=== PATIENT | female | born 1970 | race Caucasian/White ===

== ENCOUNTER 2021-09-04 22:15 | Emergency (ER) | payer OTHER, SELFPAY ==
[2021-09-04 22:25] VITALS: BP 157/87; PULSE 88; RESP 16; O2SAT 100; BMI 28.8
--- NOTE | 2021-09-04 22:25 | PC.NURSE ---
at [facility] for primary eval.
--- NOTE | 2021-09-04 22:26 | ED_ITS ---
HPI - General Adult General Chief complaint: ETOH/Substance Use Stated complaint: overdose Time Seen by Provider: 09/04/21 22:23 Source: patient Limitations: no limitations History of Present Illness HPI narrative: This is a 51 years old female brought here by ambulance because after taking CBD eatible became anxious,she is now feels better and she is requesting discharge home Onset (ago): hour(s) (2) Radiation: non-radiation Severity: mild Relieving factors: none Exacerbating factors: none Related Data Allergies Allergy/AdvReac Type Severity Reaction Status Date / Time bee pollen [bee stings] Allergy Swelling Verified 09/04/21 22:29 Review of Systems Review of Systems: Yes all other systems are reviewed and are negative ENT: Reports system reviewed and no additional complaints, except as documented Cardiovascular: Cardiovascular: Denies chest pain, Denies chest pain at rest, Denies chest pain with activity, Denies syncope and Denies dyspnea Respiratory: Respiratory: Denies dyspnea Neurologic: Denies syncope Allergic/Immunologic: Allergic/Immunologic: Reports no additional allergic/immunologic complaints PMFSH Past Medical History Attestation statement: The following information was validated with the patient. Medical History Depression Social History Social History Advance Directives: No Advance Directives Information Provided: No Patient : No Physical Exam Vital Signs: Vital Signs: Last Vital Signs Pulse 78 09/04/21 22:39 Resp 18 09/04/21 22:39 BP 183/92 H 09/04/21 22:39 Pulse Ox 99 09/04/21 22:39 Body Mass Index 28.8 Const: General: cooperative and healthy appearing Nutritional Appearance: well nourished Orientation/consciousness: patient oriented x3 HENMT: Head: Yes normal to inspection Face and sinus: Yes normal facial exam Mouth: Normal oral and palatal mucosa present Neck: Neck: Yes normal visual inspection, Yes full ROM and Yes no lymphadenopathy Chest: Chest palpation & inspection: normal inspection of the chest Resp: Effort & Inspection: normal respiratory effort Auscultation: clear to auscultation bilaterally Cardio: Jugular venous distension: no JVD Rate: regular rate Rhythm: regular rhythm GI: Inspection: Yes normal to inspection Palpation (GI): Soft to palpation and nontender Skin: General skin exam: no rashes or lesions noted, elasticity normal and tu rgor normal Rashes: no rashes Neuro: General: patient oriented x3 Psych: Appearance: grossly normal and well kempt Mental Status: mental status grossly normal Speech and movement: Clear speech present Attitude: cooperative Thought content: Normal thought content present Insight: Good insight present (Psych) Course Course Course Narrative: At this time the patient is completely asymptomatic, she is requesting discharge, she is not SI, she does not want detox we will discharge her home Discharge Plan Discharge Clinical Impression: Anxiety, Cannabis abuse Patient Disposition: Home, Self-Care Instructions: Anxiety (ED) Additional Instructions: Follow-up with your primary care physician on Tuesday return if you worse,any concern Interventions: ED Discharge Assessment Last Done: 09/04/21 22:52 Discharge Date/Time: 09/04/21 22:53
[2021-09-04 22:39] VITALS: BP 183/92; PULSE 78; RESP 18; O2SAT 99
== END 2021-09-04 22:53 | disposition home or self-care (01) ==
LOC: HO.ED 22:46
PROVIDERS: Emergency Provider Emergency Medicine
DX: F12.180 Cannabis abuse with cannabis-induced anxiety disorder (principal)
CPT/HCPCS: 99283

== ENCOUNTER 2023-01-10 09:42 | Emergency (ER) | payer OTHER, SELFPAY ==
[2023-01-10 09:44] VITALS: BP 153/79; PULSE 75; RESP 18; TEMP 36.7; O2SAT 97; BMI 29.5
--- NOTE | 2023-01-10 10:37 | ED_ITS ---
HPI - General Adult General Chief complaint: General Medical Stated complaint: high bp Time Seen by Provider: 01/10/23 10:36 Source: patient Mode of arrival: ambulatory Limitations: no limitations History of Present Illness HPI narrative: Patient is a 52 year old assigned female at with a history of HTN on 25mg of Losartan presenting to the emergency department today after 2 nose bleeds and being informed her blood pressure was high at work. Patient states that she is having intermittent nose bleeds and went to the nurses office at her job and they informed her that her blood pressure was high with the systolic number in the 170s. Patient states that she has high blood pressure and takes Losartan, 25mg. Patient denies any dizziness, lightheadedness, abdominal pain, nausea, vomiting, fever, chills, blurry vision, double vision, loss of vision, chest pain, difficulty breathing, shortness of breath, back pain, night sweats, pain with urination, increased urinary frequency, increased urinary urgency, blood in her urine or stool, syncope or a near syncopal episode, recent trauma or falls, bowel incontinence, bladder incontinence, bowel retention, bladder retention, or any other complaints at this time. Severity: mild Severity scale (1-10): 2 Relieving factors: none Exacerbating factors: none Associated symptoms: denies other symptoms Treatments prior to arrival: none Related Data Allergies Allergy/AdvReac Type Severity Reaction Status Date / Time bee pollen [bee stings] Allergy Swelling Verified 09/04/21 22:29 Review of Systems Constitutional: Constitutional: Reports no additional constitutional complaints, Denies chills, Denies fever(s) and Denies night sweats Eyes: Eyes: Reports no additional eye complaints, Denies blurry vision, Denies change in vision, Denies diplopia, Denies eye discharge, Denies loss of vision and Denies eye pain ENT: Denies dizziness Cardiovascular: Cardiovascular: Reports no additional cardiovascular complaints, Denies chest pain, Denies lightheadedness, Denies Loss of Consciousness and Denies dyspnea Respiratory: Respiratory: Reports no additional respiratory complaints and Denies dyspnea Gastrointestinal: Gastrointestinal: Reports no additional gastrointestinal complaints, Denies abdominal pain, Denies melena, Denies hematochezia, Denies change in bowel habits and Denies change in stool character Genitourinary: Genitourinary: Denies hematuria, Denies urinary frequency, Denies dysuria, Denies urinary incontinence, Denies urinary hesitancy and Denies urinary urgency Musculoskeletal: Musculoskeletal: Reports no additional musculoskeletal complaints, Denies numbness and Denies tingling Neurologic: Denies dizziness, Denies loss of vision, Denies numbness and Denies tingling Psychiatric: Psychiatric: Reports no additional psychiatric complaints Endocrine: Endocrine: Reports no additional endocrine complaints Hematologic/Lymphatic: Hematologic/Lymphatic: Reports no additional hematologic/lymphatic complaints Allergic/Immunologic: Allergic/Immunologic: Reports no additional allergic/immunologic complaints [facility] Past Medical History Attestation statement: The following information was validated with the patient. Source: old records reviewed and nursing notes reviewed Medical History Depression Social History Social History Advance Directives: No Advance Directives Information Provided: No Physical Exam ED Vital Signs: Vital Signs - 24 hr 01/10/23 09:44 01/10/23 12:08 Temperature 98.1 F Pulse Rate 75 65 Respiratory Rate 18 18 Blood Pressure 153/79 H 154/84 H Pulse Oximetry 97 99 Oxygen Delivery Method Room Air Room Air BMI result Body Mass Index 29.5 Const General: cooperative, no acute distress, alert and awake Nutritional Appearance: well nourished Orientation/consciousness: patient oriented x3 Limitations: no limitations HENMT Head: Yes normal to inspection and Yes atraumatic Ears: hearing grossly normal bilaterally and external ears normal General nose exam: Normal external nose present, no nasal discharge noted and no epistaxis Face and sinus: Yes normal facial exam, No abrasion and No laceration Mouth: Normal oral and palatal mucosa present, no drooling and no muffled voice Eyes General: appearance normal, both eyes and all related structures Periorbital: periorbital findings normal Eyelids: Yes eyelids normal Conjunctivae: conjunctivae normal Pupils: Equal, round and reactive pupils present EOM: EOMs intact bilaterally Neck Neck: Yes normal visual inspection, Yes full ROM and Yes no lymphadenopathy Chest Chest palpation & inspection: normal inspection of the chest Resp Effort & Inspection: normal respiratory effort and able to speak in complete sentences Auscultation: clear to auscultation bilaterally Cardio Rate: regular rate Rhythm: regular rhythm GI Inspection: Yes normal to inspection Palpation (GI): Soft to palpation, not firm, nontender and no guarding Neuro General: patient oriented x3 and moves all extremities Cranial nerves: Yes Equal, round and reactive pupils present Cognition (Neuro): normal cognition Motor exam (neuro): 5/5 motor strength present throughout Sensory Exam: Normal double simultaneous stimulation for sensation Coordination: [id number] test normal Extrem General: Yes normal to inspection, Yes full ROM and Yes capillary refill normal Psych Appearance: grossly normal Mental Status: mental status grossly normal Affect: normal affect Attitude: cooperative Thought process: Normal thought process present Thought content: Normal thought content present Insight: Good insight present (Psych) Medical Decision Making Medical Decision Making MDM Narrative: Patient is a 52 year old assigned female at with a history of HTN presenting to the emergency department today after a nose bleed and concerns of high blood pressure. Patient's physical exam was unremarkable. Patient's nose bleed resolved and there was no evidence of current bleeding in either nostril. Patient's blood work was unremarkable. Patient's EKG was unremarkable. I explained my physical exam findings as well as all test results to the patient. I answered all questions asked by the patient. I stressed the importance of the patient taking her other medication as prescribed and increasing her losartan by 1/2 tab while keeping a blood pressure diary to review with her PCP. I stressed the importance of the patient following up with her primary care provider. I stressed the importance of the patient returning to the emergency department immediately if her symptoms were to worsen or if she were to develop any dizziness, shortness of breath, difficulty breathing, chest pain, blurry vision, loss of vision, nausea, vomiting, abdominal pain, fever, chills, back pain, or any other complaints. Patient verbalized agreement and understanding with this treatment plan and discharge. Differential Diagnosis Differential Diagnoses: The differential diagnosis associated with the presentation includes HTN, resolved epistaxis Lab Data [facility] Lab Attestation statement: I reviewed the patient's lab results. 01/10/23 11:47 01/10/23 11:22 Labs: Lab Results 01/10/23 01/10/23 Range/Units 11:22 11:47 WBC 9.0 (4.8-10.8) X10*3/uL RBC 5.07 (4.20-5.50) X10*6/uL Hgb 13.0 (12.0-16.0) g/dl Hct 39.5 (37.0-47.0) % MCV 77.9 L (80.0-98.0) fL MCH 25.6 L (27.0-33.0) pg MCHC 32.9 (31.0-35.0) g/dl RDW 13.0 (11.0-16.0) % Plt Count 278 (160-400) X10*3/uL MPV 10.4 (9.4-12.3) fL Immature Gran % (Auto) 0.3 (0.0-0.4) % Neut % (Auto) 61.4 (45-73) % Lymph % (Auto) 31.3 (20-40) % Vance % (Auto) 5.1 (2-11) % Eos % (Auto) 1.3 (0-4) % Baso % (Auto) 0.6 (0-2) % Lymph # (Auto) 2.8 (1.2-4.9) X10*3/uL Vance # (Auto) 0.5 (0.1-1.2) X10*3/uL Eos # (Auto) 0.1 (0.0-0.4) X10*3/uL Baso # (Auto) 0.1 (0.0-0.2) X10*3/uL Abs Immat Gran (auto) 0.03 (0.00-0.03) X10*3/uL Absolute Neuts (auto) 5.5 (2.0-8.3) x10*3/uL Absolute Nucleated RBC 0.000 (0.0-0.012) X10*3/uL Nucleated RBC % (auto) 0.0 (0.0-0.2) /100WBC Sodium 139 (135-145) mmol/L Potassium 4.2 (3.3-5.1) mmol/L Chloride 111 H (96-108) mmol/L Carbon Dioxide 21 L (22-29) mmol/L Anion Gap 11 L (12-20) BUN 14 (9-16) mg/dL Creatinine 0.70 (0.5-1.4) mg/dL Estim Creat Clear Calc 97.2 Estimated GFR > 60 Random Glucose 95 (60-115) mg/dL Calcium 9.2 (8.4-10.2) mg/dL Magnesium 2.1 (1.6-2.6) mg/dL Total Bilirubin 0.3 (0.0-1.0) mg/dL AST 19 (5-31) U/L ALT 28 (0-31) U/L Alkaline Phosphatase 97 (39-117) U/L Total Protein 6.8 (6.5-8.0) g/dL Albumin 4.2 (3.5-5.0) g/dL Discharge Plan Discharge Clinical Impression: Hypertension Patient Disposition: Home, Self-Care Instructions: Hypertension (ED) Additional Instructions: Increase your daily blood pressure medication dose by 1/2 tab. If you begin to have any dizziness, unsteadiness, or other adverse reactions - drop back down to your original dose. Begin a blood pressure diary. Follow up with your primary care provider. Return to the emergency department immediately if your symptoms worsen or if you develop any dizziness, shortness of breath, difficulty breathing, chest pain, blurry vision, loss of vision, nausea, vomiting, abdominal pain, fever, chills, back pain, or any other complaints. Referrals: [facility] Family Medicine [Provider Group] (Call to establish and follow up with a primary care provider. If you already have a primary care provider, please follow up with them.) [facility] [Provider Group] (Call to establish and follow up with a primary care provider. If you already have a primary care provider, please follow up with them.) [facility] Primary Care,[facility] [Provider Group] (Call to establish and follow up with a primary care provider. If you already have a primary care provider, please follow up with them.) Stand Alone Forms: Work/School Release Interventions: ED Discharge Assessment Last Done: 01/10/23 12:08 Discharge Date/Time: 01/10/23 12:09 Print Language: Uzbek
--- NOTE | 2023-01-10 10:41 | ECG_ITS ---
Test Reason : HTN,WEAKNESS Blood Pressure : / mmHG Vent. Rate : 063 BPM Atrial Rate : 063 BPM P-R Int : 152 ms QRS Dur : 092 ms QT Int : 422 ms P-R-T Axes : 059 037 027 degrees QTc Int : 431 ms Normal sinus rhythm Normal ECG When compared with ECG of 12-JAN-2020 16:23, No significant change was found Referred By: Gila Daley Electronically Signed By:NIKKI HUYNH
[2023-01-10 11:48] LABS: Alanine Aminotransferase 28 U/L (0-31); Albumin Level 4.2 g/dL (3.5-5.0); Alkaline Phosphatase 97 U/L (39-117); Anion Gap 11 (12-20); Aspartate Amino Transferase 19 U/L (5-31); Bilirubin Total 0.3 mg/dL (0.0-1.0); Blood Urea Nitrogen 14 mg/dL (9-16); Calcium 9.2 mg/dL (8.4-10.2); Carbon Dioxide 21 mmol/L (22-29); Chloride 111 mmol/L (96-108); Creatinine Clr Calc Pharmacy 97.2; Estimated Glomerular Filt Rate > 60; Glucose Random 95 mg/dL (60-115); Magnesium 2.1 mg/dL (1.6-2.6); Potassium 4.2 mmol/L (3.3-5.1); Sodium 139 mmol/L (135-145); Total Protein 6.8 g/dL (6.5-8.0)
[2023-01-10 11:58] LABS: Basophils Absolute Auto 0.1 X10*3/uL (0.0-0.2); Basophils Percent Auto 0.6 % (0-2); Eosinophils Absolute Auto 0.1 X10*3/uL (0.0-0.4); Eosinophils Percent Auto 1.3 % (0-4); Hematocrit 39.5 % (37.0-47.0); Imm Gran Abs Auto 0.03 X10*3/uL (0.00-0.03); Imm Gran Pct Auto 0.3 % (0.0-0.4); Lymphocytes Absolute Auto 2.8 X10*3/uL (1.2-4.9); Lymphocytes Percent Auto 31.3 % (20-40); Mean Corpuscular HGB Conc 32.9 g/dl (31.0-35.0); Mean Corpuscular Hemoglobin 25.6 pg (27.0-33.0); Mean Corpuscular Volume 77.9 fL (80.0-98.0); Mean Platelet Volume 10.4 fL (9.4-12.3); Monocytes Absolute Auto 0.5 X10*3/uL (0.1-1.2); Monocytes Percent Auto 5.1 % (2-11); Neutrophils Absolute Auto 5.5 x10*3/uL (2.0-8.3); Neutrophils Percent Auto 61.4 % (45-73); Platelet Count 278 X10*3/uL (160-400); Red Blood Count 5.07 X10*6/uL (4.20-5.50)
[2023-01-10 12:08] VITALS: BP 154/84; PULSE 65; RESP 18; O2SAT 99
== END 2023-01-10 12:09 | disposition home or self-care (01) ==
PROVIDERS: Physician Assistant Medical; Emergency Provider Student in an Organized Health Care Education/Training Program
DX: I10 Essential (primary) hypertension (principal); R53.1 Weakness; Z79.899 Other long term (current) drug therapy
CPT/HCPCS: 36415; 80053; 83735; 85025; 93005; 99283; 99284

== ENCOUNTER 2023-01-19 20:41 | Emergency (ER) | payer OTHER, SELFPAY ==
[2023-01-19 21:46] VITALS: BP 182/82; PULSE 62; RESP 20; TEMP 36.8; O2SAT 97; BMI 29.7
[2023-01-19 22:20] LABS: Basophils Absolute Auto 0.1 X10*3/uL (0.0-0.2); Basophils Percent Auto 0.8 % (0-2); Eosinophils Absolute Auto 0.1 X10*3/uL (0.0-0.4); Eosinophils Percent Auto 1.3 % (0-4); Hematocrit 40.9 % (37.0-47.0); Hemoglobin 12.9 g/dl (12.0-16.0); Imm Gran Abs Auto 0.03 X10*3/uL (0.00-0.03); Imm Gran Pct Auto 0.3 % (0.0-0.4); Lymphocytes Absolute Auto 2.9 X10*3/uL (1.2-4.9); Lymphocytes Percent Auto 31.5 % (20-40); MANUAL DIFF FLAG SCAN; Mean Corpuscular HGB Conc 31.5 g/dl (31.0-35.0); Mean Corpuscular Hemoglobin 25.9 pg (27.0-33.0); Mean Platelet Volume 12.4 fL (9.4-12.3); Monocytes Absolute Auto 0.5 X10*3/uL (0.1-1.2); Monocytes Percent Auto 5.1 % (2-11); Neutrophils Absolute Auto 5.5 x10*3/uL (2.0-8.3); PLT CLUMP 1; Red Blood Count 4.99 X10*6/uL (4.20-5.50); Red Cell Distribution Width 13.4 % (11.0-16.0); SCAN SMEAR FLAG 1
--- NOTE | 2023-01-19 22:21 | ED.GENADULT ---
HPI - General Adult General Chief complaint: General Medical Stated complaint: elevated bp Time Seen by Provider: 01/19/23 22:21 Source: patient Mode of arrival: ambulatory Limitations: no limitations History of Present Illness HPI narrative: Patient history of hypertension high cholesterol was on losartan 25 mg which was increased to 37.5 last week because of high blood pressure patient comes back as blood pressure for last 24 hours been elevated reach up to 209/108 on arrival was 182/82 patient is slightly stressed headache chest does drink caffeine but usually 1 can Coke no NSAID intake no chest pain or palpitation feeling dizzy anxious , saturating 97% at room air Related Data Previous Rx's Medication Instructions Recorded hydrochlorothiazide 12.5 mg tablet 12.5 mg PO QAM #30 tabs 01/19/23 losartan 50 mg tablet 50 mg PO DAILY #30 tabs 01/19/23 Allergies Allergy/AdvReac Type Severity Reaction Status Date / Time bee pollen [bee stings] Allergy Swelling Verified 09/04/21 22:29 Review of Systems Review of Systems: Yes all other systems are reviewed and are negative [facility] Past Medical History Medical History Depression Social History Social History Advance Directives: No Advance Directives Information Provided: No Physical Exam ED Vital Signs: Vital Signs - 24 hr 01/19/23 21:46 Temperature 98.3 F Pulse Rate 62 Respiratory Rate 20 Blood Pressure 182/82 H Pulse Oximetry 97 Oxygen Delivery Method Room Air BMI result Body Mass Index 29.7 Appearance: Alert. Oriented X3. No acute distress. Eyes: No pallor ENT: Pharynx normal. Oral Mucosa moist Neck: Normal inspection. Neck supple. CVS: Normal heart rate and rhythm. Pulses normal. Respiratory: No respiratory distress. Equal air entry bilateral, no wheezing/rales/rhonchi Abdomen: Soft and nontender. Bowel sounds are present, Skin: Skin warm and dry. Normal skin color. Normal skin turgor. Extremities: No lower extremity edema. No calf tenderness Neuro: Oriented X 3. No motor deficit. No sensory deficit.No cerebellar signs , cranial nerves II-XII intact Medical Decision Making Medical Decision Making MDM Narrative: Patient with hypertension slightly uncontrolled on losartan blood pressure improved during stay in the ER to 159/64 asymptomatic will increase the dose of losartan to 50 advised to add hydrochlorothiazide 12.5 if blood pressure continues to be elevated Lab Data MDM Lab Attestation statement: I reviewed the patient's lab results. 01/19/23 22:11 01/19/23 22:11 Labs: Lab Results 01/19/23 01/19/23 Range/Units 22:11 22:11 WBC 9.0 (4.8-10.8) X10*3/uL RBC 4.99 (4.20-5.50) X10*6/uL Hgb 12.9 (12.0-16.0) g/dl Hct 40.9 (37.0-47.0) % MCV 82.0 (80.0-98.0) fL MCH 25.9 L (27.0-33.0) pg MCHC 31.5 (31.0-35.0) g/dl RDW 13.4 (11.0-16.0) % Plt Count TNP MPV 12.4 H (9.4-12.3) fL Immature Gran % (Auto) 0.3 (0.0-0.4) % Neut % (Auto) 61.0 (45-73) % Lymph % (Auto) 31.5 (20-40) % Bremer % (Auto) 5.1 (2-11) % Eos % (Auto) 1.3 (0-4) % Baso % (Auto) 0.8 (0-2) % Lymph # (Auto) 2.9 (1.2-4.9) X10*3/uL Bremer # (Auto) 0.5 (0.1-1.2) X10*3/uL Eos # (Auto) 0.1 (0.0-0.4) X10*3/uL Baso # (Auto) 0.1 (0.0-0.2) X10*3/uL Abs Immat Gran (auto) 0.03 (0.00-0.03) X10*3/uL Absolute Neuts (auto) 5.5 (2.0-8.3) x10*3/uL Absolute Nucleated RBC 0.000 (0.0-0.012) X10*3/uL Nucleated RBC % (auto) 0.0 (0.0-0.2) /100WBC Smear Tech's Comments VERIFIED Sodium 141 (135-145) mmol/L Potassium 3.6 (3.3-5.1) mmol/L Chloride 112 H (96-108) mmol/L Carbon Dioxide 19 L (22-29) mmol/L Anion Gap 14 (12-20) BUN 10 (9-16) mg/dL Creatinine 0.77 (0.5-1.4) mg/dL Estim Creat Clear Calc 88.6 Estimated GFR > 60 Random Glucose 92 (60-115) mg/dL Calcium 9.2 (8.4-10.2) mg/dL Discharge Plan Discharge Clinical Impression: Hypertension Patient Disposition: Home, Self-Care Instructions: Chronic Hypertension (ED) Additional Instructions: Increased dose of losartan to 50 mg along with start taking hydrochlorothiazide 12.5 mg daily Check blood pressure should be less than 135/85 Avoid caffeine drink Follow-up with PCP Prescriptions: New losartan 50 mg tablet 50 mg PO DAILY Qty: 30 0RF hydrochlorothiazide 12.5 mg tablet 12.5 mg PO QAM Qty: 30 0RF Interventions: ED Discharge Assessment Last Done: 01/19/23 23:05 Discharge Date/Time: 01/19/23 23:06
[2023-01-19 22:34] LABS: Anion Gap 14 (12-20); Blood Urea Nitrogen 10 mg/dL (9-16); Calcium 9.2 mg/dL (8.4-10.2); Carbon Dioxide 19 mmol/L (22-29); Chloride 112 mmol/L (96-108); Creatinine Clr Calc Pharmacy 88.6; Estimated Glomerular Filt Rate > 60; Glucose Random 92 mg/dL (60-115); Potassium 3.6 mmol/L (3.3-5.1); Sodium 141 mmol/L (135-145)
[2023-01-19 23:11] LABS: SLIDE REVIEW VERIFIED
== END 2023-01-19 23:06 | disposition home or self-care (01) ==
PROVIDERS: Emergency Provider Internal Medicine
DX: I10 Essential (primary) hypertension (principal); E78.5 Hyperlipidemia, unspecified; Z79.899 Other long term (current) drug therapy
CPT/HCPCS: 36415; 80048; 85025; 99282; 99283

== ENCOUNTER 2025-08-18 14:23 | Emergency (ER) | payer BC, SELFPAY ==
--- NOTE | ~2025-08-18 | CT_ITS ---
CLINICAL HISTORY: LLQ pain, vomiting. Hx hysterectomy CT Abdomen and Pelvis W Contrast COMPARISON: None provided FINDINGS: Hypodensity in the liver adjacent to the falciform ligament, characteristic of focal fatty infiltration. Normal spleen. Left renal cyst. Unremarkable right kidney. No hydronephrosis. Normal adrenal glands. Normal pancreas. No visible cholelithiasis. No biliary dilation. Liquid stool with air-fluid levels in the colon. No mucosal thickening or pneumatosis. No evidence of acute appendicitis. Mild diffuse bladder wall thickening. Status post hysterectomy. No ascites. No pneumoperitoneum. No lymphadenopathy. No acute fracture. Mild degenerative changes in the spine. No abdominal aortic aneurysm. Fat-containing umbilical hernia. IMPRESSION: Findings consistent with diarrheal illness. Possible cystitis. Nonemergent/incidental findings above. This document has been electronically signed by: Marino Herrera MD on 08/18/2025 21:49:27
--- NOTE | 2025-08-18 14:39 | ED_ITS ---
HPI - Nausea/Vomiting/Diarrhea General Chief complaint: Abdominal Pain Stated complaint: vomiting Time Seen by Provider: 08/18/25 18:47 History of Present Illness ED Provider: Victoriano MANUEL Narrative: The patient is a 55-year-old woman who says that around noon today she developed abdominal pain, nausea, and vomiting. She estimates she has vomited about 15 times this afternoon. She finally came to the emergency room. No diarrhea. No fever, sweats, chills. She currently has what she describes as discomfort in her abdomen together with some nausea. The patient has a history of C-sections, a tubal ligation, and ultimately hysterectomy. Related Data Previous Rx's ?Medication ?Instructions ?Recorded hydrochlorothiazide 12.5 mg tablet 12.5 mg PO QAM #30 tabs 01/19/23 losartan 50 mg tablet 50 mg PO DAILY #30 tabs 03/08 ondansetron 4 mg disintegrating 4 mg PO Q6H PRN nausea and 08/19/25 tablet vomiting #10 tabs Allergies Allergy/AdvReac Type Severity Reaction Status Date / Time bee pollen (bee stings) Allergy Swelling Verified 08/18/25 14:45 Review of Systems 2 Review of Systems: Yes all other systems are reviewed and are negative PMFSH Past Medical History Medical History Depression Physical Exam 2 Vital Signs: Vital Signs: Last Vital Signs Temp 98.0 F 08/19/25 00:41 Pulse 82 08/19/25 00:41 Resp 16 08/19/25 00:41 BP 113/69 08/19/25 00:41 Pulse Ox 96 08/19/25 00:41 O2 Del Method Room Air 08/19/25 00:41 BMI result Body Mass Index 26.9 Const: Other: The patient is awake and alert, pleasant cooperative, she does not look obviously ill. Orientation/consciousness: patient oriented x3 HEENT: Other: The face is symmetrical. ?Mucous membranes moist. Eyes: Other: Pupils are round equal, conjunctivae are clear, extraocular movements intact Neck: Neck: Yes normal visual inspection Resp: Effort & Inspection: normal respiratory effort Auscultation: clear to auscultation bilaterally Cardio: Rate: regular rate Rhythm: regular rhythm Heart sounds: S1 normal heart sound present and S2 normal heart sound present GI: Other: The patient is abdomen is not markedly distended. Very little in the way of bowel sounds. Tender in the left lower quadrant. Skin: Other: The skin is dry and unremarkable Neuro: General: patient oriented x3, tone normal, moves all extremities, no focal motor deficits and CN's II-XI intact bilaterally Extrem: Other: There is no calf swelling or tenderness. No asymmetry. No peripheral edema. Course Course Course Narrative: This is a Rapid Medical Exam performed in triage by Antonella Lynch PA-C. Full HPI, ROS and PE to be performed by primary ED provider. 55-year-old female presenting to the ED c/o periumbilical abdominal pain, N & V since 12noon. sudden onset PE: uncomfortable, anxious, hyperventilating, abdomen soft diffusely ttp. no rebound or guarding Plan: Labs, UA Medications Administered Discontinued Medications Generic Name Dose Route Start Last Admin Trade Name Freq PRN Reason Stop Dose Admin Sodium Chloride 1,000 mls @ 999 mls/hr 08/18/25 19:15 08/18/25 20:35 Ns IV 08/18/25 20:15 Infused .Q1H1M MELANIE Infusion Lactated Ringer's 1,000 mls @ 999 mls/hr 08/18/25 22:30 08/19/25 00:30 Lr IV 08/18/25 23:30 Infused .Q1H1M MELANIE Infusion Iohexol 100 ml 08/18/25 19:47 08/18/25 19:48 Iohexol 350 Mg/Ml 100 Ml Infus..Btl IV 08/18/25 19:48 85 ml ONCE ONE Administration Ketorolac Tromethamine 15 mg 08/18/25 19:04 08/18/25 19:12 Ketorolac Tromethamine 15 Mg/Ml Vial IVPUSH 08/18/25 19:05 15 mg ONCE ONE Administration Ondansetron HCl 4 mg 08/18/25 16:00 08/18/25 16:22 Ondansetron Odt 4 Mg Tab.Rapdis TRANSLINGU 08/18/25 16:01 4 mg ONCE ONE Administration Ondansetron HCl 4 mg 08/18/25 19:04 08/18/25 19:12 Ondansetron Hcl 4 Mg/2 Ml Vial IVPUSH 08/18/25 19:05 4 mg ONCE ONE Administration Medical Decision Making Medical Decision Making [facility] [place] Narrative: The patient is a 55-year-old woman who presents after several hours of multiple episodes of vomiting associated with some degree of central abdominal discomfort. No diarrhea. She has a history of C-sections and hysterectomy. Her abdominal exam revealed but I thought was some left lower abdominal tenderness. Clinically the patient did not look toxic. I had some concern about the possibility of a bowel obstructions since the patient had not had any diarrhea associated with a fair amount of vomiting. I ordered a CT scan of her abdomen and pelvis. I was surprised that her lab work came back showing white count as high as 22,000. patient did not really look acutely toxic. I added on a CRP which came back abnormal. The patient's CT scan was essentially read as showing findings consistent with an acute diarrheal illness. the radiologist describes liquid stool in the colon without associated inflammatory changes. No surgical process identified. The the patient was treated symptomatically with IV ketorolac, ondansetron, and IV fluids. Her symptoms improved significantly. She was able to tolerate oral intake. She received a total of 2 L of IV fluids. I explained to the patient that she may yet develop significant diarrhea based on the findings of her CT scan but that there were no findings of an acutely surgical process or other acutely dangerous process. Therefore after it was clear she was able tolerate oral intake she was discharged. I will send a prescription for ondansetron to her pharmacy. She should return if worse.. Lab Data 08/18/25 18:35 08/18/25 18:35 Labs: Lab Results 08/18/25 08/18/25 Range/Units 15:55 18:35 WBC 22.7 H (4.8-10.8) X10*3/uL RBC 5.69 H (4.20-5.50) X10*6/uL Hgb 14.8 (12.0-16.0) g/dl Hct 44.2 (37.0-47.0) % MCV 77.7 L (80.0-98.0) fL MCH 26.0 L (27.0-33.0) pg MCHC 33.5 (31.0-35.0) g/dl RDW 12.9 (11.0-16.0) % Plt Count 330 (160-400) X10*3/uL MPV 10.2 (9.4-12.3) fL Immature Gran % (Auto) Cancelled Neut % (Auto) Cancelled Lymph % (Auto) Cancelled Emanuel % (Auto) Cancelled Eos % (Auto) Cancelled Baso % (Auto) Cancelled Lymph # (Auto) Cancelled Emanuel # (Auto) Cancelled Eos # (Auto) Cancelled Baso # (Auto) Cancelled Abs Immat Gran (auto) Cancelled Absolute Neuts (auto) Cancelled Absolute Nucleated RBC 0.000 (0.0-0.012) X10*3/uL Nucleated RBC % (auto) 0.0 (0.0-0.2) /100WBC Neutrophils % (Manual) 86 H (45-73) % Band Neutrophils % 3 (3-5) % Lymphocytes % (Manual) 8 L (20-40) % Monocytes % (Manual) 3 (2-11) % Abs Neuts (Manual) 20.2 H (2.0-8.3) X10*3/uL Lymphocytes # (Manual) 1.8 (1.2-4.9) X10*3/uL Monocytes # (Manual) 0.7 (0.1-1.2) X10*3/uL Toxic Vacuolation PRESENT Platelet Estimate NORMAL (NORMAL) Plt Morphology Comment NORMAL RBC Morphology NOTED Ovalocytes 1+ (5-14) /OIF Smear Tech's Comments MANUAL DIFF Sodium 141 (135-145) mmol/L Potassium 3.4 (3.3-5.1) mmol/L Chloride 105 (96-108) mmol/L Carbon Dioxide 24 (22-29) mmol/L Anion Gap 15 (12-20) BUN 19 H (9-16) mg/dL Creatinine 0.87 (0.5-1.4) mg/dL Estim Creat Clear Calc 72.3 Estimated GFR > 60 Random Glucose 106 (60-115) mg/dL Calcium 10.0 D (8.4-10.2) mg/dL Magnesium 2.1 (1.6-2.6) mg/dL Total Bilirubin 0.4 (0.0-1.0) mg/dL Direct Bilirubin 0.1 (0.0-0.5) mg/dL AST 20 (5-31) U/L ALT 26 (0-31) U/L Alkaline Phosphatase 81 (39-117) U/L C-Reactive Protein 0.34 (< or = 0.50) mg/dL Total Protein 8.2 H (6.5-8.0) g/dL Albumin 5.3 H (3.5-5.0) g/dL Lipase 37 (8-78) U/L Urine Color Yellow Urine Appearance Clear Urine pH 5.5 (5.0-9.0) Ur Specific [place] >= 1.030 H (1.005-1.025) Urine Protein 30 (1+) H (Neg-Trace) mg/dL Urine Glucose (UA) Negative (Negative) mg/dL Urine Ketones 15 (Negative) mg/dL Urine Blood Negative (Negative) Urine Nitrite Negative (Negative) Ur Leukocyte Esterase Trace H (Negative) Urine RBC 0-2 (0-2) /HPF Urine WBC 0-5 (0-5) /HPF Ur Squamous Epith Cells 0-2 (0-2) /HPF Urine Bacteria None Seen (None Seen) Hyaline Casts 0-2 (0-2) /LPF COVID-19 (PATEL) Negative (Negative) COVID-19 Clin Com See Note Influenza Type A (FREDERICK) Negative (Negative) Influenza Type B (FREDERICK) Negative (Negative) Influenza A & B Note See Note Discharge Plan Discharge Clinical Impression: Nausea and vomiting Patient Disposition: Home, Self-Care Instructions: Acute Nausea and Vomiting (ED), Acute Abdominal Pain (ED) Additional Instructions: I think you very likely have a bad stomach bug. The reading of your CAT scan suggest that you will probably developed diarrhea. I have sent a prescription for ondansetron, a medication for nausea, to your pharmacy. You may use this as needed. I would recommend a simple diet and clear liquids for the next couple of days. Take clear liquids and simple foods like toast or well cooked rice. If you developed diarrhea you can use [id number] loperamide (Imodium). Please contact your regular doctor's office for additional advice as needed. Return to the emergency room if significantly worse. Prescriptions: New ondansetron 4 mg tablet,disintegrating 4 mg PO Q6H PRN (Reason: nausea and vomiting) Qty: 10 0RF No Action losartan 50 mg tablet 50 mg PO DAILY Qty: 30 0RF hydrochlorothiazide 12.5 mg tablet 12.5 mg PO QAM Qty: 30 0RF Referrals: Amaro Johnson,Radha M, MD [Primary Care Provider, Internal Medicine] Stand Alone Forms: Work/School Release Interventions: ED Discharge Assessment Last Done: 08/19/25 00:41 Discharge Date/Time: 08/19/25 00:42 Print Language: Persian
[2025-08-18 14:45] VITALS: BP 159/73; PULSE 111; RESP 26; O2SAT 97; BMI 26.9
--- OUTSIDE RECORDS SUMMARY | 2025-08-18 16:07 | XMS_ITS | Clinical Summary ---
Author Organization [facility] [address] [place] [address] Address [address] [place] [address] Phone Care Team Providers Care Health Promoter Name Role Phone Radha Rizo MD Primary Care Prov ider Allergies Active Allergy Reactions Criticality Noted Date Comments Bee Venom Protein (Honey Bee) Flushing,Swelling 03/06/2009 Lisinopril Cough 07/15/2022 Medications hydroCHLOROthiaz chioma (HYDRODIURIL) 25 mg tablet Take 1 tablet (25 mg total) by mouth 1 (one) time each day. 90 tablet 01/23/2025 Active losartan (COZAAR) 50 mg tablet Take 1 tablet (50 mg total) by mouth 1 (one) time each day. 90 tablet 01/23/2025 Active naproxen (NAPROSYN) 500 mg tablet Take 1 tablet (500 mg total) by mouth 2 (two) times a day if needed for mild pain for up to 20 doses. 20 tablet 02/15/2025 Active Active Problems Problem Noted Date Diagnosed Date Overweight (BMI 25.0-29.9) 01/23/2025 Hypertension 04/11/2023 Assessment & Plan (02/15/2025 9:12 AM EDT): Insomnia 08/05/2021 Hypersomnolence 02/17/2021 Nocturnal hypoxemia 01/14/2021 Obstructive sleep apnea 01/14/2021 Overview (09/29/2024): [facility] Home Sleep Apnea Test: Date 01/08/2021; Wt 165#; BMI 28; CARMEN (AHI) 6, AI 3; HI 3; Unclassified apneas 14; Obstructive apneas 6; Central apneas 7; Mixed apneas 0; hypopneas 20; average oxygen saturation 90% (lowest 77% with saturations <88% for 5% or more of study) - Obstructive Sleep Apnea - mild; mostly hypopneas with unclassified and obstructive apneas; with sleep related hypoventilation by 2020 home sleep apnea test. Fatty liver 11/07/2020 Overview (09/29/2024): Seen in ultrasound S/P hysterectomy 09/06/2020 Snoring 02/03/2018 Alopecia 03/06/2009 Anemia 12/04/2007 Encounters Date Type Department Care Team Description 05/29/2025 1:00 PM EDT Treatment Outpatient Rehabilitation [address] [phone] Kassidy Malik, GEM SETTER Acute pain of left shoulder (Primary Dx) 05/20/2025 2:00 PM EDT Treatment Outpatient [address] [phone] Kassidy Malik, GEM SETTER Acute pain of left shoulder (Primary Dx) from Last 3 Months Immunizations Immunization Administration Dates Next Due Influenza Quadravalent, MDCK , 0.5ml, preservative free (Flucelvax) 6mo and older 07/15/2023,07/06/2022,07/10/2021,2019,08/06/2019 Influenza trivalent, 0.5mL, preservative free (Fluarix; FluLaval; Fluzone) ages 6mo and older (Afluria) 3 years and older 07/31/2017,08/03/2016 Influenza trivalent, MDCK, 0 .5mL, preservative free (Flucelvax) 6mo and older 07/14/2024 Influenza, Unspecified 2024,07/05/2022 Pfizer (age 5-11) Bivalent, COVID-19 08/27/2022 Pfizer (ages 12 & older) Biv alent, COVID-19 08/27/2022 Pfizer SARS-CoV-2 COVID-19, mRNA, LNP-S, preservative free 08/27/2022 Pneumococcal conjugate 20 va len (Prevnar 20, PCV 20) 2mo and older 02/15/2025 Td Tetanus diptheria (Tdvax) 7yo and older 10/16/2020 Tdap Tetanus diptheria acell ular pertussis (Boostrix; Adacel) 7yo and older 03/06/2009 Zoster recombinant (Shingrix ) 19yo and older 06/11/2024,12/30/2022 Surgical History Surgery Date Site/Laterality Comments SECTION PROCEDURE: HISTORICAL TONSILLECTOMY PROCEDURE: HISTORICAL TONSILLECTOMY TUBAL LIGATION PROCEDURE: HISTORICAL TUBAL LIGATION HYSTERECTOMY 05/2013 PROCEDURE: HISTORICAL HYSTERECTOMY; COMMENT: DaVinci BREAST SURGERY PROCEDURE: MN UNLISTED PROCEDURE BREAST BREAST BIOPSY PROCEDURE: BX BREAST; PERC NEEDLE CORE W/IMAG GUID; COMMENT: rt side -benign COLONOSCOPY 06/16/2023 PROCEDURE: HISTORICAL COLONOSCOPY; COMMENT: muslu - 2 polyps repeat 5 years Medical History Medical History Date Comments Alopecia 03/06/2009 DX:Alopecia Family History Medical History Relation Name Comments No Known Problems Father Diabetes Maternal Grandmother Arthritis Mother Knee surgery no t sure it is arthritis Diabetes Uncle mother's side Breast cancer Neg Hx Colon cancer Neg Hx Ovarian cancer Neg Hx Relation Name Status Comments Father Alive PTSD Maternal Grandmother dm, Mother Alive allergies, Uncle Social History Tobacco Use Types Packs/Day Years Used Date Smoking Tobacco: Never Smokeless Tobacco: Never Tobacco Cessation:Counseling Given: Not Answered Alcohol Use Standard Drinks/Week Comments No 0 (1 standard drink = 0.6 oz pur e alcohol) Housing Instability Answer Date Recorde d Are you worried that in the next 2 months you may not have stable housing? No 11/28/2024 Food Access & Nutrition Answer Date Rec orded Do you have access to a vari ety of food including fruits and vegetables? Yes 11/28/2024 Health Literacy Answer Date Recorded How often do you need to hav e someone help you when you read instructions, pamphlets, or other written material from your doctor or pharmacy? Never 11/28/2024 Caregiver: How often do you need to have someone help you when you read instructions, pamphlets, or other written material from your doctor or pharmacy? Not on file 11/28/2024 Financial Risk Answer Date Recorded How hard is it for you to pa y for the very basics like food, housing, medical care, and air conditioning / heating? Not very hard 11/28/2024 Transportation Answer Date Recorded Has the lack of transportati on kept you from meetings, work, or from getting things needed for daily living? No Has the lack of transportati on kept you from medical appointments or from getting medications? No 11/28/2024 Social Isolation Answer Date Recorded How often do you feel lonely or isolated from those around you? Sometimes 11/28/2024 Food Risk Answer Date Recorded Within the past 12 months we worried whether our food would run out before we got money to buy more. Never true 11/28/2024 Within the past 12 months th e food we bought just didn't last and we didn't have money to get more. Never true 11/28/2024 Dependent Care Answer Date Recorded Do you need help finding or paying for care for your loved ones. For example, school child care attendant or elderly care for an older adult? No 11/28/2024 Education Answer Date Recorded Do you think completing more education or training, like finishing a GED, going to college, or learning a trade, would be helpful for you? N/A 11/28/2024 Employment and Income Answer Date Recor ded During the last four weeks, have you been actively looking for work? No 11/28/2024 Living Situation Answer Date Recorded What is your living situation? Unrecognized valu e 11/28/2024 Comments Unknown Sex and Gender Information Value Date Recorded Sex Assigned at Female 11/28/2024 6:00 PM EST Legal Sex Female 6:13 AM EST Gender Identity Female 11/28/2024 6:00 PM EST Sexual Orientation Straight 11/28/2024 6: 00 PM EST Obstetrics History Last Filed Vital Signs Vital Sign Reading Time Taken Comments Blood Pressure 121/79 02/15/2025 8:41 AM EDT Pulse 76 02/15/2025 8:41 AM EDT Temperature 36.5 C (97.7 F) 02/15/2025 8:41 AM EDT Respiratory Rate 14 02/15/2025 8:41 AM EDT Oxygen Saturation - - Inhaled Oxygen Concentration - - Weight 76.9 kg (169 lb 9.6 oz) 02/15/2025 8:41 A M EDT Height 162.6 cm (5' 4 ) 02/15/2025 8:41 AM EDT Body Mass Index 29.11 02/15/2025 8:41 AM EDT Plan of Treatment Upcoming Encounters Date Type Department Care Team (Late st Contact Info) Description 09/04/2025 7:30 AM EST Office Visit Adult Medicine [facility] [address] [place], [place] [phone] Radha Rizo MD [address] [place], [place] Health Maintenance Due Date Last Done Comments Hepatitis B Vaccines (1 of 3 - 19+ 3-dose series) 1991 COVID-19 Vaccine ( season) 2025 08/27/2022, 08/27/2022, 08/27/2022, Additional history exists Influenza Vaccine (#1) 2025 , 07/14/2024, 07/15/2023, Additional history exists Breast Cancer Screening 08/17/2025 08/17/20 24, 08/17/2024, 11/22/2022, Additional history exists Social Influencers of Health Screening 11/28/2025 11/28/2024 Hypertension/CHF/CAD Annual BMP Blood Test 02/14/2026 02/14/2025, 08/06/2024, 08/06/2024, Additional history exists Colorectal Cancer Screening: Colonoscopy 01/23/2030 01/23/2025, 06/16/2023 Cholesterol Screening (Lipid Panel) 02/14/2030 02/14/2025, 08/06/2024, 08/06/2024, Additional history exists DTaP,Tdap,and Td Vaccines (3 - Td or Tdap) 10/16/2030 10/16/2020, 03/06/2009 RSV Immunization Adult Patients (1 - 1-dose 75+ series) 2047 Hepatitis C Screening Completed 03/25/2023 Zoster Vaccines Completed 06/11/2024, 12/30/2022 Depression Screening Completed 11/28/2024 HIV Screening Completed 02/14/2025 Pneumococcal Vaccine: 50+ Years Completed 02/15/2025 HIB Vaccines Aged Out No longer eligi ble based on patient's age to complete this topic HPV Vaccines Aged Out No longer eligi ble based on patient's age to complete this topic Hepatitis A Vaccines Aged Out No long er eligible based on patient's age to complete this topic IPV Vaccines Aged Out No longer eligi ble based on patient's age to complete this topic MMR Vaccines Aged Out No longer eligi ble based on patient's age to complete this topic Meningococcal ACWY Vaccine Aged Out N o longer eligible based on patient's age to complete this topic Meningococcal B Vaccine Aged Out No l onger eligible based on patient's age to complete this topic RSV Immunization Patients Under 20 months Aged Out No longer eligible based on patient's age to complete this topic Varicella Vaccines Aged Out No longer eligible based on patient's age to complete this topic Goals Goal Patient Goal Type Associated Problems Recent Progress Patient-Stated? Author STG's 6 visits General Yes Kendall Myles, PT Note: Pt will demonstrate combined left shoulder ext, adduction and IR to L4 for dressing behind back. Pt is Independent and compliant with initial HEP. Pt will report L shoulder pain of no more than 3/10 on VAS w/ quick reaching and grabbing. Pt will demonstrate a 1/2 grade or better improvement in L UE and scap rotator strength deficits. LTG's 12 visits General Yes Kendall Myles, PT Note: Pt will demonstrate combined left shoulder extension, adduction and IR to T12 or better for dressing behind back. Pt will be Independent and compliant with final HEP. Pt will report L shoulder pain of no more than 1/10 on VAS w/ quick reaching and grabbing. Pt will demonstrate a 1 grade or better improvement in L UE and scap rotator strength deficits. Procedures Procedure Name Priority Date/Time Associated Diagnosis Comments HIV 1, 2 ANTIBODY, P24 ANTIGEN WITH REFLEX TO DIFFERENTIATION Routine 02/14/2025 8:05 AM EDT Screen for STD (sexually transmitted disease) COMPREHENSIVE METABOLIC PANEL Routine 02/14/2025 8:05 AM EDT Primary hypertension Overweight (BMI 25.0-29.9) LIPID PANEL WITH REFLEX TO DIRECT LDL Routine 02/14/2025 8:05 AM EDT Primary hypertension Overweight (BMI 25.0-29.9) COLONOSCOPY Routine 01/23/2025 1:36 PM EDT SCREENING MAMMOGRAPHY BI 2-VIEW BREAST INC CAD Routine 08/17/2024 11:47 AM EDT Encounter for screening mammogram for malignant neoplasm of breast HM HEPATITIS C SCREENING Routine 03/25/2023 from Last 3 Months or Most Recently Relevant to Health Maintenance Results * HIV 1,2 antibody, p24 antigen with reflex to differentiation (02/14/2025 8:05 AM EDT) Pathologist [facility] HIV Combo AB/AG Negative Negative LAB CHEMISTRY METHOD 02/14/2025 12:31 PM EDT [facility] Blood Venous blood specimen / Unknown Venipuncture / Unknown 02/14/2025 8:05 AM EDT 02/14/2025 8:05 AM EDT Narrative [facility] - 02/14/2025 12:31 PM EDT This assay is a 4th generation assay allowing for earlier detection of HIV infection by detecting the presence of the HIV-1 p24 antigen as well as the traditional antibodies to HIV type 1 (including group O) and type 2. Use of a 4th generation assay is the current CDC recommendation for HIV screening. us Isaura [facility] LAB BLOOD ORDERABLES Final Resu lt [facility] [address] [place] [address], * (ABNORMAL) Lipid panel with reflex to direct LDL (02/14/2025 8:05 AM EDT) Cholesterol 180 0 - 200 mg/dL LAB CHEMISTRY METHOD 02/14/2025 11:20 AM EDT [facility] Triglycerides 83 0 - 150 mg/dL LAB CHEMISTRY METHOD 02/14/2025 11:20 AM EDT [facility] HDL 54 >=40 mg/dL LAB CHEMISTRY METHOD 02/14/2025 11:20 AM T [facility] LDL Calculated 109(H) 0 - 100 mg/dL LAB CHEMISTRY METHOD 02/14/2025 11:20 AM EDT [facility] VLDL Cholesterol Abilio 16.6 mg/dL LAB CHEMISTRY METHOD 02/14/2025 11:20 AM EDT [facility] Non HDL Chol. (LDL+VLDL) 126 <145 mg/dL LAB CHEMISTRY METHOD 02/14/2025 11:20 AM [facility] Chol/HDL Ratio 3.3 0.0 - 4.4 LAB CHEMISTRY METHOD 02/14/2025 11:20 AM [facility] Blood Venous blood specimen / Unknown Venipuncture / Unknown 02/14/2025 8:05 AM EDT 02/14/2025 8:05 AM EDT us Isaura [facility] LAB BLOOD ORDERABLES Final Resu lt [facility] [address] [place] [address], * Comprehensive metabolic panel (02/14/2025 8:05 AM EDT) Sodium 139 133 - 145 mmol/L LAB CHEMISTRY METHOD 02/14/2025 11:20 AM T [facility] Potassium 3.8 3.5 - 5.5 mmol/L LAB CHEMISTRY METHOD 02/14/2025 11:20 AM [facility] Chloride 106 96 - 110 mmol/L LAB CHEMISTRY METHOD 02/14/2025 11:20 AM [facility] CO2 24 21 - 32 mmol/L LAB CHEMISTRY METHOD 02/14/2025 11:20 AM [facility] Anion Gap 9 3 - 11 LAB CHEMISTRY METHOD 02/14/2025 11:20 AM [facility] Glucose 93 70 - 100 mg/dL LAB CHEMISTRY METHOD 02/14/2025 11:20 AM [facility] BUN 13 5 - 25 mg/dL LAB CHEMISTRY METHOD 02/14/2025 11:20 AM [facility] Creatinine 0.77 0.50 - 1.10 mg/dL LAB CHEMISTRY METHOD 02/14/2025 11:20 AM [facility] eGFR 93 >=60 mL/min/1. 73m2 LAB CHEMISTRY METHOD 02/14/2025 11:20 AM [facility] Comment:Calculation based on the Chronic Kidney Disease Epidemiology Collaboration (CKD-EPI) equation refit without adjustment for race. BUN/Creatinine Ratio 16.9 LAB CHEMISTRY METHOD 02/14/2025 11:20 AM [facility] Calcium 9.2 8.5 - 10.5 mg/dL LAB CHEMISTRY METHOD 02/14/2025 11:20 AM [facility] AST (SGOT) 16 10 - 42 unit/L LAB CHEMISTRY METHOD 02/14/2025 11:20 AM [facility] ALT (SGPT) 37 10 - 60 unit/L LAB CHEMISTRY METHOD 02/14/2025 11:20 AM [facility] Alkaline Phosphatase 79 42 - 121 unit/L LAB CHEMISTRY METHOD 02/14/2025 11:20 AM [facility] Total Protein 7.0 6.0 - 8.0 g/dL LAB CHEMISTRY METHOD 02/14/2025 11:20 AM [facility] Albumin 4.0 3.2 - 5.0 g/dL LAB CHEMISTRY METHOD 02/14/2025 11:20 AM [facility] Total Bilirubin 0.4 0.0 - 1.4 mg/dL LAB CHEMISTRY METHOD 02/14/2025 11:20 AM EDT [facility] Blood Venous blood specimen / Unknown Venipuncture / Unknown 02/14/2025 8:05 AM EDT 02/14/2025 8:05 AM EDT Isaura [facility] LAB BLOOD ORDERABLES Final Resu lt [facility] [address] [place] [address], * COLONOSCOPY (01/23/2025 1:36 PM EDT) Anatomical Region Laterality Modality Endoscopy Historical Provider GI~PROCEDURE ORDERABLES F inal Result * SCREENING MAMMOGRAPHY BI 2-VIEW BREAST INC CAD (08/17/2024 11:47 AM EDT) Anatomical Region Laterality Modality Radiographic Debra ging 05/08/2024 1:44 PM EDT Narrative 08/17/2024 1:05 PM EDT This is a summary report. The complete report is available in the patient's medical record. If you cannot access the medical record, please contact the sending organization for a detailed fax or copy. Full field digital screening tomosynthesis mammography, reviewed with CAD and compared to previous. The breast tissue is heterogeneously dense, limiting sensitivity. No suspicious mass, architectural distortion or suspicious calcifications are identified. There is a biopsy clip in the upper outer left breast. IMPRESSION: : Dense breast tissue, limiting the sensitivity of mammography. No mammographic evidence of malignancy. BIRADS 1-Negative; N. Breast density: The breasts are heterogeneously dense, which may obscure small masses. 5 year breast cancer risk assessment 0.9 % Lifetime breast cancer risk assessment 7.6 % Breast cancer risk category Low (<15%) Location: [facility], [address] [place] [address], [place], [address], [phone] Procedure Note Angela Cordoba MD - 09/10/2024 This is a summary report. The complete report is available in thepatient's medical record. If you cannot access the medical record, pleasecontact the sending organization for a detailed fax or copy. Full field digital screening tomosynthesis mammography, reviewed with CADand compared to previous. The breast tissue is heterogeneously dense,limiting sensitivity. No suspicious mass, architectural distortion orsuspicious calcifications are identified. There is a biopsy clip in theupper outer left breast. IMPRESSION: : Dense breast tissue, limiting the sensitivity of mammography. Nomammographic evidence of malignancy. BIRADS 1-Negative; N. Breast density: The breasts are heterogeneously dense, which may obscuresmall masses. 5 year breast cancer risk assessment 0.9 % Lifetime breast cancer risk assessment 7.6 % Breast cancer risk category Low (<15%) Location: [facility], [address] [place] [address], [address], [phone] Radha Rizo MD IMG XR PROCEDURES Final Result * Hepatitis C Screening (03/25/2023) Hepatitis C Screening abstracted Historical Provider HEALTH MAINTENANCE Final Result from Last 3 Months or Most Recently Relevant to Health Maintenance Insurance [facility] Care Teams Health Promoter Relationship Specialty Start Date End Date Radha Rizo MD [address] [place] [phone] PCP - General Internal Medicine 05/17/22
[2025-08-18 16:19] LABS: COVID-19 Test Negative (Negative); IDNOW Serial# 55D5AD1C; IDNOW Serial# 58CA691E; Influenza B2 Negative (Negative)
[2025-08-18 18:27] VITALS: BP 147/69; PULSE 84; RESP 16; O2SAT 100
--- NOTE | 2025-08-18 18:37 | PC.NURSE ---
Labs not obtained while in triage, PIV placed and labs drawn and sent upon arrival to ED bed. Pt awake and alert, denies abd pain at this time. Mild nausea. Call steward within reach
[2025-08-18 18:50] LABS: Hematocrit 44.2 % (37.0-47.0); Hemoglobin 14.8 g/dl (12.0-16.0); Mean Corpuscular HGB Conc 33.5 g/dl (31.0-35.0); Mean Corpuscular Hemoglobin 26.0 pg (27.0-33.0); Mean Corpuscular Volume 77.7 fL (80.0-98.0); NRBC Abs Auto 0.000 X10*3/uL (0.0-0.012); NRBC Pct Auto 0.0 /100WBC (0.0-0.2); Platelet Count 330 X10*3/uL (160-400); Red Blood Count 5.69 X10*6/uL (4.20-5.50); White Blood Count 22.7 X10*3/uL (4.8-10.8)
[2025-08-18 18:51] LABS: Appearance Urine Clear; Glucose Urine UA Negative (Negative); PH 5.5 (5.0-9.0); Specific Gravity - Urine >= 1.030 (1.005-1.025); UMIC TRIGGER UACC YES
[2025-08-18 19:25] LABS: Alanine Aminotransferase 26 U/L (0-31); Albumin Level 5.3 g/dL (3.5-5.0); Alkaline Phosphatase 81 U/L (39-117); Anion Gap 15 (12-20); Aspartate Amino Transferase 20 U/L (5-31); Blood Urea Nitrogen 19 mg/dL (9-16); Calcium 10.0 mg/dL (8.4-10.2); Carbon Dioxide 24 mmol/L (22-29); Chloride 105 mmol/L (96-108); Creatinine Clr Calc Pharmacy 72.3; Estimated Glomerular Filt Rate > 60; Lipase 37 U/L (8-78); Magnesium 2.1 mg/dL (1.6-2.6); Potassium 3.4 mmol/L (3.3-5.1); Sodium 141 mmol/L (135-145); Total Protein 8.2 g/dL (6.5-8.0)
[2025-08-18 19:33] LABS: Band Neutrophils Percent 3 % (3-5); Lymphocytes Absolute Manual 1.8 X10*3/uL (1.2-4.9); Lymphocytes Percent Manual 8 % (20-40); Monocytes Absolute Manual 0.7 X10*3/uL (0.1-1.2); Monocytes Percent Manual 3 % (2-11); Neutrophils Absolute Manual 20.2 X10*3/uL (2.0-8.3); Neutrophils Percent Manual 86 % (45-73)
[2025-08-18 19:34] LABS: Ovalocytes 1+ (5-14) /OIF; RBC Morphology NOTED; Toxic Vacuolation PRESENT
[2025-08-18] MEDS: iohexoL 350 MG/ML 100 ML INFUS..BTL IV (19:48)
[2025-08-18 20:29] VITALS: BP 116/72; PULSE 87; RESP 16; TEMP 36.9; O2SAT 99
[2025-08-18 22:34] VITALS: BP 107/50; PULSE 82; RESP 16; TEMP 36.7; O2SAT 98
[2025-08-18] MEDS: Lactated Ringers 1,000 ML 999 ML IV (22:34)
[2025-08-19 00:30] VITALS: BP 113/69; PULSE 82; RESP 16; TEMP 36.7; O2SAT 96
[2025-08-19 00:41] VITALS: BP 113/69; PULSE 82; RESP 16; TEMP 36.7; O2SAT 96
== END 2025-08-19 00:42 | disposition home or self-care (01) ==
PROVIDERS: Physician Assistant; Emergency Provider Emergency Medicine; PCP Internal Medicine
DX: R11.2 Nausea with vomiting, unspecified (principal); R10.9 Unspecified abdominal pain; Z90.710 Acquired absence of both cervix and uterus
CPT/HCPCS: 74177; 80048; 80076; 81001; 83690; 83735; 85007; 85025; 85027; 86140; 87502; 87635; 96361; 96374; 96375; 99285; J1885; J2405; J7120; Q9967

== ENCOUNTER → 2025-08-18 19:05 | Outpatient (BNV) | payer BC, SELFPAY | PROVIDERS: Emergency Provider Emergency Medicine; PCP Internal Medicine; Visit Provider Radiology Diagnostic Radiology | DX: R10.32 Left lower quadrant pain (principal); R11.10 Vomiting, unspecified | CPT/HCPCS: 74177 ==